=== PATIENT | female | born 1965 | race Caucasian/White ===

== ENCOUNTER 2018-04-10 12:30 | Inpatient (IN) | payer OTHER ==
[~2018-04-10] VITALS: Ht 160 cm; Wt 55.3 kg
[2018-05-10] MEDS ORDERED: INTESTINEX680 M1 PO (08:19)
[2018-05-10] MEDS ORDERED: OXYC1TAB9 PO (08:19)
== END 2018-05-10 12:49 | disposition home or self-care (01) | DRG 330 ==
LOC: O/R 05-06 07:04 → SURG 05-06 07:04 → SURH 05-06 07:15 → SURG 05-06 18:30
PROVIDERS: Surgery
PROC: 0DJD8ZZ Inspection of Lower Intestinal Tract, Via Natural or Artificial Opening Endoscopic (ICD-10-PCS; 2018-05-06)
PROC: 0DTN4ZZ Resection of Sigmoid Colon, Percutaneous Endoscopic Approach (ICD-10-PCS; principal; 2018-05-06 15:00)
DX: K57.20 Diverticulitis of large intestine with perforation and abscess without bleeding (principal); M06.89 Other specified rheumatoid arthritis, multiple sites; F41.8 Other specified anxiety disorders